=== PATIENT | male | born 1985 | race Caucasian/White ===

== ENCOUNTER 2016-12-26 21:08 | Emergency (ER) | payer MEDICAID ==
[~2016-12-26] VITALS: Ht 180.3 cm; Wt 78.8 kg
[2016-12-26 21:10] VITALS: BP 127/82
== END 2016-12-26 22:23 | disposition home or self-care (01) ==
LOC: ED 22:19
DX: K08.89 Other specified disorders of teeth and supporting structures (principal); F12.10 Cannabis abuse, uncomplicated; Z88.1 Allergy status to other antibiotic agents
CPT/HCPCS: 99283

== ENCOUNTER 2016-12-30 20:58 | Emergency (ER) | payer MEDICAID ==
[~2016-12-30] VITALS: Ht 180.3 cm; Wt 75.9 kg
[2016-12-30 20:59] VITALS: BP 135/82
== END 2016-12-30 21:52 ==
LOC: ED 21:48
DX: K02.9 Dental caries, unspecified (principal); K04.7 Periapical abscess without sinus
CPT/HCPCS: 41800

== ENCOUNTER 2017-01-11 18:25 | Emergency (ER) | payer MEDICAID ==
[~2017-01-11] VITALS: Ht 180.3 cm; Wt 76.6 kg
[2017-01-11] MEDS ORDERED: KETOROLAC 30 MG/1 ML IM ONE (19:30)
[2017-01-11] MEDS ORDERED: KETOROLAC 30 MG/1 ML ONE (19:39)
[2017-01-11 20:00] VITALS: BP 127/68
== END 2017-01-11 20:03 | disposition home or self-care (01) ==
LOC: ED 19:57
DX: S46.912A Strain of unspecified muscle, fascia and tendon at shoulder and upper arm level, left arm, initial encounter (principal); F12.10 Cannabis abuse, uncomplicated; X50.1XXA Overexertion from prolonged static or awkward postures, initial encounter; Y93.89 Activity, other specified; Y92.89 Other specified places as the place of occurrence of the external cause; Y99.8 Other external cause status
CPT/HCPCS: 73030; 96372; 99284; J1885

== ENCOUNTER 2017-11-30 17:02 | Emergency (ER) | payer OTHER ==
[~2017-11-30] VITALS: Ht 177.8 cm; Wt 77.2 kg
[2017-11-30] MEDS ORDERED: OXYcodone/APAP 5/325MG TABLET PO ONE (18:30)
[2017-11-30] MEDS ORDERED: OXYcodone/APAP 5/325MG TABLET ONE (18:39)
[2017-11-30 20:25] LABS: BASOPHILS # (AUTO) 0.02 x10^3/uL (0-0.1); BASOPHILS % (AUTO) 0 % (0-1); EOSINOPHILS # (AUTO) 0.14 x10^3/uL (0-0.4); EOSINOPHILS % (AUTO) 2 % (1-7); LYMPHOCYTES # (AUTO) 2.21 x10^3/uL (1-3.4); LYMPHOCYTES % (AUTO) 32 % (22-44); MD NO; MEAN CORPUSCULAR HGB CONC 33.6 g/dL (33.2-36.2); MEAN CORPUSCULAR VOLUME 95.5 fL (81-97); MEAN PLATELET VOLUME 9.3 fL (7.4-10.4); MONOCYTES % (AUTO) 9 % (2-9); NEUTROPHILS # (AUTO) 4.02 x10^3/uL (1.8-6.8); NEUTROPHILS % (AUTO) 58 % (42-75); PLATELET COUNT 197 x10^3/uL (130-400); RED BLOOD COUNT 4.75 x10^6/uL (4.38-5.82); RED CELL DISTRIBUTION WIDTH 12.9 % (9.4-14.8)
[2017-11-30] MEDS ORDERED: SODIUM CHLORIDE FLUSH 10ML SYR IVF ONE (20:30)
[2017-11-30 20:35] LABS: ALBUMIN 4.2 g/dL (3.4-5.0); ANION GAP 7 mmol/L (5-15); CALCIUM 8.7 mg/dL (8.5-10.1); CHLORIDE 108 mmol/L (98-107); CREATININE 0.97 mg/dL (0.7-1.3)
[2017-11-30 21:15] VITALS: BP 105/67
[2017-12-01] MEDS ORDERED: OMNIPAQUE 350 MG/ML, 100ML BOTTLE ONE (03:43)
== END 2017-11-30 21:29 | disposition home or self-care (01) ==
LOC: ED 21:13
DX: S22.31XA Fracture of one rib, right side, initial encounter for closed fracture (principal); S16.1XXA Strain of muscle, fascia and tendon at neck level, initial encounter; S29.012A Strain of muscle and tendon of back wall of thorax, initial encounter; Z87.891 Personal history of nicotine dependence; X58.XXXA Exposure to other specified factors, initial encounter; Y93.89 Activity, other specified; Y92.410 Unspecified street and highway as the place of occurrence of the external cause; Y99.8 Other external cause status
CPT/HCPCS: 36415; 70450; 72125; 74177; 80048; 82040; 85025; 99285; Q9967

== ENCOUNTER 2018-11-04 09:58 | Emergency (ER) | payer OTHER ==
[~2018-11-04] VITALS: Ht 177.8 cm; Wt 74.8 kg
[2018-11-04 11:03] LABS: MICROSCOPIC NOT IND
--- NOTE | 2018-11-04 11:05 | NUR ---
[facility]
[2018-11-04 11:08] LABS: CULTURE INDICATED? NO
--- NOTE | 2018-11-04 11:18 | NUR ---
First contact with pt. Pt transported to CT on [facility]. ROD. No needs expressed at this time.
--- NOTE | 2018-11-04 11:38 | NUR ---
Pt back to room from CT. Pt [place]. Pt states, "I think I had a kidney stone. I have never had this happen before. This morning the pain was 100 times worse. It started Sunday afternoon. It hurts in my lower right back and up in to here (right lower quadrant of abdomen). My pain right now is a 7/10 right now and it is consistent." NADN. Pt connected to NIBP and continous pulse ox. All safety measures in place. No needs expressed at this time.
[2018-11-04] MEDS ORDERED: KETOROLAC 30 MG/1 ML ONE (11:45)
[2018-11-04 11:46] LABS: BASOPHILS # (AUTO) 0.03 x10^3/uL (0-0.1); BASOPHILS % (AUTO) 1 % (0-1); EOSINOPHILS # (AUTO) 0.14 x10^3/uL (0-0.4); EOSINOPHILS % (AUTO) 2 % (1-7); LYMPHOCYTES # (AUTO) 2.48 x10^3/uL (1-3.4); LYMPHOCYTES % (AUTO) 37 % (22-44); MD NO; MEAN CORPUSCULAR HEMOGLOBIN 32.5 pg (27.5-34.5); MEAN CORPUSCULAR HGB CONC 33.7 g/dL (33.2-36.2); MEAN CORPUSCULAR VOLUME 96.3 fL (81-97); MEAN PLATELET VOLUME 9.1 fL (7.4-10.4); MONOCYTES # (AUTO) 0.43 x10^3/uL (0.2-0.8); MONOCYTES % (AUTO) 6 % (2-9); NEUTROPHILS # (AUTO) 3.61 x10^3/uL (1.8-6.8); NEUTROPHILS % (AUTO) 54 % (42-75); PLATELET COUNT 220 x10^3/uL (130-400); RED BLOOD COUNT 4.65 x10^6/uL (4.38-5.82); RED CELL DISTRIBUTION WIDTH 13.1 % (9.4-14.8)
[2018-11-04 11:55] LABS: ALBUMIN 3.8 g/dL (3.4-5.0); ANION GAP 4 mmol/L (5-15); CALCIUM 8.2 mg/dL (8.5-10.1); CHLORIDE 107 mmol/L (98-107); CREATININE 1.08 mg/dL (0.7-1.3)
[2018-11-04 11:58] VITALS: BP 123/88
[2018-11-04] MEDS ORDERED: KETOROLAC 30 MG/1 ML IM ONE (12:00)
--- NOTE | 2018-11-04 13:05 | NUR ---
TASK RN: FIRST CONTACT WITH [facility]ME[facility]. Patient/Caregiver given discharge instructions and they have confirmed that they understand the instructions. Patient ambulatory with steady gait. PT LEFT WITH ALL PERSONAL BELONGINGS.
== END 2018-11-04 13:07 | disposition home or self-care (01) ==
LOC: ED 12:13
DX: S39.012A Strain of muscle, fascia and tendon of lower back, initial encounter (principal); S29.012A Strain of muscle and tendon of back wall of thorax, initial encounter; R11.0 Nausea; Z87.891 Personal history of nicotine dependence; X58.XXXA Exposure to other specified factors, initial encounter; Y93.89 Activity, other specified; Y92.89 Other specified places as the place of occurrence of the external cause; Y99.8 Other external cause status
CPT/HCPCS: 36415; 74176; 80048; 81003; 82040; 85025; 96372; 99284; J1885